=== PATIENT | male | born 2000 | race Hispanic/Latino ===

== ENCOUNTER 2022-03-03 20:35 | Emergency (ER) | payer OTHER ==
[~2022-03-03] VITALS: Ht 172.7 cm; Wt 75.1 kg
[2022-03-04] MEDS ORDERED: ONDANSETRON 4MG ORAL DISINTEGRATING TAB PO ONE (04:55)
[2022-03-04] MEDS ORDERED: ONDA4TAB6 PO (04:56)
[2022-03-04 05:03] VITALS: BP 129/69
== END 2022-03-04 05:00 | disposition home or self-care (01) ==
LOC: M ED 20:35
DX: R11.2 Nausea with vomiting, unspecified (principal); L25.3 Unspecified contact dermatitis due to other chemical products